=== PATIENT | male | born 1955 | race Two or more races ===

== ENCOUNTER 2018-05-04 12:54 | Emergency (ER) | payer MEDICAID ==
[~2018-05-04] VITALS: Ht 167.6 cm; Wt 86.2 kg
[2018-05-04] MEDS ORDERED: TAMSULOSIN HCL0.4 MG ORAL (13:05)
[2018-05-04 13:24] VITALS: BP 123/79
[2018-05-04] MEDS ORDERED: CLARITIN10 MG ORAL (13:34)
[2018-05-04] MEDS ORDERED: TYLENOL EXTRA500 MG ORAL (13:34)
--- NOTE | 2018-05-04 13:34 | Emergency Room Report ---
History of Present Illness General Chief Complaint: Diarrhea Source: Patient Present Illness HPI 62-year-old male patient presents ER complaining of diarrhea for the past 4 days. Reports symptoms began after eating a cheeseburger at yesterday. Reports no blood in his diarrhea. Reports passing gas without difficulty. Denies nausea or vomiting. Denies fever. Denies recent travel outside the country. Denies recent antibiotic use. Denies blood in diarrhea. Reports taking Pepto-Bismol and Pedialyte. Also complaining of headache intermittently during this time. Reports frontal headache, denies vision changes vomiting. Denies tinnitus. Denies vertigo. Denies acute pain at this time. Allergies: Coded Allergies: No Known Allergies (Unverified , 05/04/18) Patient History Past Medical History: see triage record Reviewed Nursing Documentation: PMH: Agreed; PSxH: Agreed Nursing Documentation-PMH Past Medical History: No History, Except For Review of Systems All Other Systems: negative except mentioned in HPI Physical Exam Vital Signs Date Time Temp Pulse Resp B/P (MAP) Pulse Ox O2 Delivery O2 Flow Rate FiO2 05/04/18 12:58 98.2 68 18 141/88 96 Room Air 98.2 Sp02 EP Interpretation: reviewed, normal General Appearance: well appearing, no apparent distress, alert, GCS 15, non- toxic Head: normocephalic, atraumatic, other - frontal sinus TTP Eyes: bilateral eye normal inspection, bilateral eye PERRL, bilateral eye EOMI ENT: hearing grossly normal, normal pharynx, no angioedema, normal voice, TMs + canals normal, uvula midline, moist mucus membranes, nasal congestion Neck: full range of motion Respiratory: lungs clear, normal breath sounds, no rhonchi, no respiratory distress, no accessory muscle use, no wheezing, speaking full sentences Cardiovascular #1: regular rate, rhythm, no edema Gastrointestinal: non tender, soft, no mass, non-distended, no guarding, no rebound, other - negative Rovsing, negative Chisholm, negative obturator Genitourinary: no CVA tenderness Musculoskeletal: back normal, digits/nails normal, gait/station normal, normal range of motion, non-tender Neurologic: alert, oriented x3, responsive, brand development manager III-XII nml as tested, motor strength/tone normal, sensory intact, cerebellar normal, normal gait, speech normal Psychiatric: mood/affect normal Skin: no rash Lymphatic: no adenopathy Medical Decision Making PA Attestation Dr. Moreno is my supervising Physician whom patient management has been discussed with. Diagnostic Impression: Primary Impression: Diarrhea Additional Impression: Sinus headache ER Course Pt. presents to the ED c/o vomiting and diarrhea. Ddx considered but are not limited to viral syndrome, gastritis, enteritis, sinus headache, tension headache, migraine, cluster headache, ICH. Vital signs: are WNL, pt. is afebrile at discharge.Mildly elevated. Blood pressure mildly elevated at this time, will continue to monitor. Denies chest pain, shortness of breath, vision changes, does not require acute intervention at ER at this time. Follow with primary care provider discuss further treatment and referral. Advised on low-sodium diet, advised on diet and exercise. ED COURSE: Patient informed of likely viral cause of symptoms. No fever, no blood in stool, no recent travel or hospitalizations, does not require abx treatment at this time. negative Rovsing, negative obturator, does not require CT imaging at this time. Negative Chisholm, does not require ultrasound at this time. no abdominal TTP, does not require workup at this time. No signs of dehydration, moist mucus membranes, Refill less than 2 seconds, normal skin turgor.. Patient reports eating and drinking normally. follow-up with primary care provider discuss further treatment and referral as needed. Tenderness to palpation of frontal sinuses, likely sinus headache will provide treatment. no focal neuro deficits, cranial nerves intact as tested, low suspicion for intracranial bleeding, does not require imaging at this time. Follow-up with , request referral to ENT specialist and/or neurology as needed. denies headache at this time, does not require treatment in ER. DISCHARGE: Rx provided Tylenol for pain Rx provided for loratadine for sinus headache Patient instructed on BRAT diet. Patient instructed to remain hydrated, drink plenty of fluids. Patient questions asked and answered. Patient states understanding and agreement to treatment plan. At this time pt. is stable for d/c to home. Patient is resting comfortably, laughing, in no acute distress, nontoxic appearing, smiling and laughing. Will provide printed patient care instructions, and any necessary prescriptions. Care plan and follow up instructions have been discussed with the patient prior to discharge. Patient instructed to followup with PCP in 3-5 days. Patient reports understanding and agreement to treatment plan. Patient questions asked and answered. ER precautions given; patient instructed to return to ER for new or worsening of symptoms including but not limited to fever, intractable vomiting, severe abdominal pain, blood in stool. - Please note that this Emergency Department Report was dictated using [employer] transcription[employer] technology software, occasionally this can lead to erroneous entry secondary to interpretation by the dictation equipment. Last Vital Signs Date Time Temp Pulse Resp B/P (MAP) Pulse Ox O2 Delivery O2 Flow Rate FiO2 05/04/18 13:24 73 18 123/79 99 Room Air 05/04/18 12:58 98.2 98.2 Disposition: HOME, SELF-CARE Condition: Stable Scripts Acetaminophen* (TYLENOL EXTRA STRENGTH*) 500 Mg Tablet 500 MG ORAL Q8H PRN for Prn Headache/Temp > 101, #30 TAB 0 Refills Prov: Emanuel Castanon 05/04/18 Loratadine (CLARITIN) 10 Mg Tablet 10 MG ORAL DAILY, #30 TAB Prov: Emanuel Castanon 05/04/18 Patient Instructions: Diarrhea, Adult, Food Poisoning, Sinus Headache, Easy-to- Read Additional Instructions: Followup with primary care provider in 3 -5 days. Avoid spicy foods, avoid dairy foods. BRAT diet: bananas, rice, apple sauce, toast. Take medications as directed. Patient questions asked and answered. ER precautions given, patient instructed to return to ER immediately for any new or worsening of symptoms. Emanuel Castanon May 04, 2018 13:34
[2018-05-04 14:04] VITALS: BP 122/80
== END 2018-05-04 14:04 | disposition home or self-care (01) ==
LOC: EMR 13:25
DX: R19.7 Diarrhea, unspecified (principal); R51 Headache
CPT/HCPCS: 99284